=== PATIENT | female | born 1960 | race African-American/Black ===

== ENCOUNTER 2017-08-22 09:29 | Emergency (ER) | payer OTHER ==
[~2017-08-22] VITALS: Ht 165.1 cm; Wt 112.0 kg
[~2017-08-22 09:29] MED LIST: BENZ1TAB7 PO; COGENTIN PO; DIPH50CA37 PO; LORA-259 PO; QUET100T PO; SERT100T PO
--- NOTE | 2017-08-22 09:52 | NUR ---
PT IS IN ROOM #2B. DR MCPHERSON EVALUATED THE PT.
[2017-08-22] MEDS ORDERED: ACETAMINOPHEN 650 MG/20.3 ML LIQUID UDC PO ONE (11:45)
--- NOTE | 2017-08-22 11:50 | NUR ---
PT WAS D/C TO HOME. D/C INSTRUCTIONS GIVEN TO THE PT AND TO PT's STEPHENHTER.
[2017-08-22 11:51] VITALS: BP 139/85
[2017-08-22] MEDS ORDERED: ACETAMINOPHEN ES 500 MG TABLET ONE (12:12)
== END 2017-08-22 11:52 | disposition home or self-care (01) ==
LOC: ER 09:31
DX: S46.911A Strain of unspecified muscle, fascia and tendon at shoulder and upper arm level, right arm, initial encounter (principal); S40.011A Contusion of right shoulder, initial encounter; I10 Essential (primary) hypertension; Z79.899 Other long term (current) drug therapy; W18.30XA Fall on same level, unspecified, initial encounter; Y93.89 Activity, other specified; Y92.89 Other specified places as the place of occurrence of the external cause; Y99.8 Other external cause status
CPT/HCPCS: 71045; 73020; 73060; A4663; A9150

== ENCOUNTER 2017-11-06 00:54 | Emergency (ER) | payer OTHER ==
[~2017-11-06] VITALS: Ht 165.1 cm; Wt 108.9 kg
--- NOTE | 2017-11-06 01:00 | NUR ---
PATIENT BROUGHT IN BY RESCUE FOR C/O BILATERAL LOWER EXTREMITY SWELLIN FOR SEVERAL WEEKS. CAPILLARY REFILL ON BILATERAL LOWER EXTREMITY LESS THAN 3 SECONDS. DENIES SOB,N/V AND CP
[2017-11-06] MEDS ORDERED: AMLO10TA2 PO (01:12)
[2017-11-06] MEDS ORDERED: FURO-151 PO (01:12)
[2017-11-06] MEDS ORDERED: FERR325T30 PO (01:12)
[2017-11-06] MEDS ORDERED: ASPI81TA31 PO (01:12)
[2017-11-06] MEDS ORDERED: ATOR40TA PO (01:12)
[2017-11-06] MEDS ORDERED: LURA40TA PO (01:12)
[2017-11-06] MEDS ORDERED: LISI-603 PO (01:12)
[2017-11-06] MEDS ORDERED: IPRA4AER IH (01:12)
[2017-11-06] MEDS ORDERED: HYDR-4076 PO (01:12)
[2017-11-06] MEDS ORDERED: GABA-532 PO (01:12)
[2017-11-06] MEDS ORDERED: DIPH25CA83 PO (01:12)
[2017-11-06 01:40] LABS: BASOPHILS # (AUTO) 0.1 K/uL (0.0-8.0); EOSINOPHILS # (AUTO) 0.2 K/uL (0.0-0.7); EOSINOPHILS % (AUTO) 2.3 % (0.0-7.0); HEMATOCRIT 26.4 % (31.2-41.9); HEMOGLOBIN 8.6 g/dL (10.9-14.3); LYMPHOCYTES # (AUTO) 1.9 K/uL (20.0-40.0); LYMPHOCYTES % (AUTO) 20.4 % (20.5-51.5); MEAN CORPUSCULAR HGB CONC 33 g/dL (32.3-35.6); MEAN CORPUSCULAR VOLUME 85.7 fL (75.5-95.3); MONOCYTES # (AUTO) 0.6 K/uL (2.0-10.0); MONOCYTES % (AUTO) 6.9 % (0.0-11.0); NEUTROPHILS # (AUTO) 6.5 K/uL (1.8-8.9); NEUTROPHILS % (AUTO) 69.4 % (38.5-71.5); PLATELET COUNT (AUTO) 302 K/uL (179-408); RED BLOOD CELL COUNT(AUTO) 3.08 MIL/uL (3.63-4.92); WHITE BLOOD COUNT (AUTO) 9.3 K/uL (3.8-11.8)
[2017-11-06 01:55] LABS: BILIRUBIN,DIRECT 0.1 mg/dL (0.0-0.2); BILIRUBIN,TOTAL 0.2 mg/dL (0.2-1.0); CREATININE 3.7 mg/dL (0.6-1.3); POTASSIUM 4.9 mmol/L (3.5-5.1)
--- NOTE | 2017-11-06 02:53 | NUR ---
US TECH HERE TO DO US ON LOWER EXTREMITY
--- NOTE | 2017-11-06 03:34 | NUR ---
ELLA FROM [facility] CALLED BACK. STATES DR HENDERSON WILL CALL BACK AND SPEAK WITH DR LOPEZ
--- NOTE | 2017-11-06 03:46 | NUR ---
ELLA FROM [facility] CALLED BACK. REQUESTING FACESHEET TO BE FAX TO [phone] AND FACESHEET TO [facility] [phone]
--- NOTE | 2017-11-06 04:21 | NUR ---
Rubin mesaedward in EDM - 11/06/17 at 0426 by [id number] PATIENT REFUSED TO TRANSFERED TO [facility] OR BE ADMITTED TO TO HOSPITAL. ALSO SPOKE WITH PATIENT DAUGHTER DENISE DUGGAN AND BOTH STATES "WE WANT TO SIGH OUT AMA AND WE WILL GO TO OUR RENAL DOCTOR IN AM." DR LOPEZ MADE AWARE
--- NOTE | 2017-11-06 04:21 | NUR ---
PATIENT REFUSED TO BE TRANSFERED TO [facility] OR BE ADMITTED INPATIENT . SPOKE WITH PATIENT'S DAUGHTER DENISE DUGGAN AND BOTH STATED "WE WANT TO SIGN OUT AMA AND WE WILL GO TO OUR RENAL DOCTOR IN THE AM." DR LOPEZ MADE AWARE
--- NOTE | 2017-11-06 05:05 | NUR ---
Patient AND DAUGHTER (DENISE DUGGAN) does not wish to proceed with medical care recommended by ( [facility] ). Patient given information related to possible complications, up to and including , which could occur as a result of leaving the hospital at this time. Patient verbalizes understanding of risks involved due to leaving against medical advice. Patient has signed AMA form.
[2017-11-06 05:06] VITALS: BP 128/66
== END 2017-11-06 05:08 | disposition left against medical advice (07) ==
LOC: ER 00:58
DX: D64.9 Anemia, unspecified (principal); R60.9 Edema, unspecified; J45.909 Unspecified asthma, uncomplicated; I12.9 Hypertensive chronic kidney disease with stage 1 through stage 4 chronic kidney disease, or unspecified chronic kidney disease; N18.9 Chronic kidney disease, unspecified; Z79.82 Long term (current) use of aspirin; Z79.899 Other long term (current) drug therapy
CPT/HCPCS: 36415; 71045; 80048; 80076; 83880; 85025; 93970; 99285; A4663

== ENCOUNTER 2018-10-03 21:18 | Inpatient (IN) | payer MEDICARE, OTHER ==
[~2018-10-03] VITALS: Ht 165.1 cm; Wt 105.7 kg
[~2018-10-03 21:18] MED LIST changes: +AMLO10TA7 PO; +ASPI81TA31 PO; +ATOR40TA PO; -BENZ1TAB7 PO; -COGENTIN PO; +DIPH25CA83 PO; -DIPH50CA37 PO; +FERR325T30 PO; +FURO-151 PO; +GABA-532 PO; +HYDR-4076 PO; +IPRA4AER IH; +LISI-603 PO; -LORA-259 PO; +LURA40TA PO; -QUET100T PO; -SERT100T PO
--- NOTE | 2018-10-03 21:28 | NUR ---
Pt bib rescue ambulance from home after pt had a witnessed syncopal episode by family while sitting at dinner table. Denies fall/injury. Pt is awake, alert, oriented x 3. Speech clear. Able to move all extremities. Vital signs stable. Per EMS, pt blood sugar on field was 179. no acute distress noted.
[2018-10-03 21:53] LABS: *BILIRUBIN,URIN NEGATIVE (NEGATIVE); *BLOOD, URINE NEGATIVE (NEGATIVE); *CLARITY,URINE SLIGHTLY CLOUDY (CLEAR); *COLOR,URINE YELLOW (YELLOW); *KETONES,URINE NEGATIVE (NEGATIVE); *UROBILINOGEN,URINE 0.2 E.U./dl (NORMAL); LEUKOCYTE ESTERASE ,URINE NEGATIVE (NEGATIVE); NITRITE, URINE NEGATIVE (NEGATIVE); PH,URINE 5.5 (5.0-8.0); UGLUCOSE NEGATIVE (NEGATIVE)
[2018-10-03 21:56] LABS: BASOPHILS # (AUTO) 0.1 K/uL (0.0-8.0); BASOPHILS % (AUTO) 0.9 % (0.0-2.0); EOSINOPHILS # (AUTO) 0.3 K/uL (0.0-0.7); EOSINOPHILS % (AUTO) 2.6 % (0.0-7.0); HEMATOCRIT 31.3 % (31.2-41.9); HEMOGLOBIN 9.7 g/dL (10.9-14.3); LYMPHOCYTES # (AUTO) 1.9 K/uL (20.0-40.0); LYMPHOCYTES % (AUTO) 17.1 % (20.5-51.5); MEAN CORPUSCULAR HEMOGLOBIN 25.2 uug (24.7-32.8); MEAN CORPUSCULAR HGB CONC 31 g/dL (32.3-35.6); MEAN CORPUSCULAR VOLUME 81.1 fL (75.5-95.3); MONOCYTES # (AUTO) 0.7 K/uL (2.0-10.0); MONOCYTES % (AUTO) 5.9 % (0.0-11.0); NEUTROPHILS # (AUTO) 8.3 K/uL (1.8-8.9); NEUTROPHILS % (AUTO) 73.5 % (38.5-71.5); PLATELET COUNT (AUTO) 378 K/uL (179-408); RED BLOOD CELL COUNT(AUTO) 3.86 MIL/uL (3.63-4.92); WHITE BLOOD COUNT (AUTO) 11.3 K/uL (3.8-11.8)
[2018-10-03 21:58] LABS: CREATININE 3.5 mg/dL (0.6-1.3); POTASSIUM 4.2 mmol/L (3.5-5.1)
[2018-10-03 22:03] LABS: BACTERIA,URINE FEW /HPF (NONE SEEN); MUCUS,URINE FEW /LPF (0-FEW); SQUAMOUS EPITHELIAL CELL,UR MANY /HPF (NONE SEEN); WBC,URINE 0-3 /HPF (0-3)
[2018-10-03] MEDS ORDERED: GABA-534 PO (22:09)
[2018-10-03 22:16] LABS: BILIRUBIN,DIRECT 0.1 mg/dL (0.0-0.2); BILIRUBIN,TOTAL 0.2 mg/dL (0.2-1.0); TOTAL PROTEIN, SERUM 7.4 g/dL (6.4-8.2)
--- NOTE | 2018-10-03 22:47 | NUR ---
Called [facility] to page Dr. Jose Armando Juarez.
--- NOTE | 2018-10-03 22:55 | NUR ---
Rubin moss in [facility] - 10/03/18 [address] Granados speaking to Dr. Jose Armando Juarez on telephone.
[2018-10-03] MEDS ORDERED: IV NS 1000 ML 1,000 ML IV PRN (23:21)
[2018-10-03] MEDS ORDERED: HYDROCODONE/APAP 10-325 MG TABLET PO PRN (23:30)
[2018-10-03] MEDS ORDERED: ONDANSETRON 4 MG/2 ML VIAL IV PRN (23:30)
[2018-10-03] MEDS ORDERED: HYDROCODONE/APAP 5-325MG TABLET PO PRN (23:30)
[2018-10-03] MEDS ORDERED: ACETAMINOPHEN 325 MG TABLET PO PRN (23:30)
[2018-10-03] MEDS ORDERED: MAGNESIUM HYDROXIDE 30 ML LIQUID UDC PO PRN (23:30)
[2018-10-03] MEDS ORDERED: DEXTROSE 50% 50 ML DISP.SYRIN IV PRN (23:30)
[2018-10-03] MEDS ORDERED: TEMAZEPAM 15 MG CAPSULE PO PRN (23:30)
[2018-10-03] MEDS ORDERED: INSULIN REGULAR, HUMAN 300 UNIT/3 ML VIAL SQ PRN (23:30)
--- NOTE | 2018-10-03 23:38 | NUR ---
Pt. admitted to Telemetry, under care of Boby Poe. Diagnosis: Syncope. Belongs List completed
[2018-10-04] MEDS ORDERED: LORAZEPAM 2 MG/1 ML VIAL IV PRN
--- NOTE | 2018-10-04 00:14 | NUR ---
received report from Radha in the ER. Room is ready for the admission.
[2018-10-04] MEDS ORDERED: HYDROCODONE/APAP 5-325MG TABLET PO ONE (00:15)
[2018-10-04] MEDS ORDERED: IPRATROPIUM BROMIDE 0.5 MG/2.5 ML NEBU NEB PRN (00:15)
[2018-10-04] MEDS ORDERED: ALBUTEROL SULFATE 2.5 MG/3 ML NEBU NEB PRN (00:15)
[2018-10-04 00:30] VITALS: BP 127/66
--- NOTE | 2018-10-04 00:40 | NUR ---
PATIENT IS ON THE UNIT. ADMISSION PROCESS IN PROGRESS
[2018-10-04 04:00] VITALS: BP 122/67
--- NOTE | 2018-10-04 05:17 | NUR ---
PATIENT WAS ASSESSED AND HISTORY WAS OBTAINED. PATIENT IS ON MONITOR, SINUS RHYTHM. GIVEN SNACKS AND HOT TEA. RESTORIL GIVEN ON REQUEST. PATIENT IS ASLEEP. COMFORT AND SAFETY PROVIDED. NO ACUTE DISTRESS NOTED
[2018-10-04 06:52] LABS: BASOPHILS # (AUTO) 0.1 K/uL (0.0-8.0); BASOPHILS % (AUTO) 0.5 % (0.0-2.0); EOSINOPHILS # (AUTO) 0.2 K/uL (0.0-0.7); EOSINOPHILS % (AUTO) 1.6 % (0.0-7.0); HEMATOCRIT 26.9 % (31.2-41.9); HEMOGLOBIN 8.3 g/dL (10.9-14.3); LYMPHOCYTES % (AUTO) 18.3 % (20.5-51.5); MEAN CORPUSCULAR HEMOGLOBIN 25.2 uug (24.7-32.8); MEAN CORPUSCULAR HGB CONC 31 g/dL (32.3-35.6); MEAN CORPUSCULAR VOLUME 81.8 fL (75.5-95.3); MONOCYTES # (AUTO) 0.6 K/uL (2.0-10.0); MONOCYTES % (AUTO) 5.4 % (0.0-11.0); NEUTROPHILS # (AUTO) 8.3 K/uL (1.8-8.9); NEUTROPHILS % (AUTO) 74.2 % (38.5-71.5); PLATELET COUNT (AUTO) 321 K/uL (179-408); RED BLOOD CELL COUNT(AUTO) 3.28 MIL/uL (3.63-4.92); WHITE BLOOD COUNT (AUTO) 11.1 K/uL (3.8-11.8)
[2018-10-04] MEDS ORDERED: PANTOPRAZOLE SODIUM 40 MG TABLET.DR PO SCH (07:00)
[2018-10-04] MEDS ORDERED: BLOOD SUGAR DIAGNOSTIC 1 EACH STRIP VI SCH (07:30)
--- NOTE | 2018-10-04 07:45 | NUR ---
patient slept well after Restoril. No acute distress noted. Endorsed report to the day shift.
[2018-10-04] MEDS ORDERED: hydrALAZINE HCL 25 MG TABLET PO SCH (07:53)
[2018-10-04 08:56] VITALS: BP 122/67
[2018-10-04] MEDS ORDERED: FERROUS SULFATE 325 MG TABEC PO SCH (09:00)
[2018-10-04] MEDS ORDERED: GABAPENTIN 100 MG CAPSULE PO SCH (09:00)
[2018-10-04] MEDS ORDERED: AMLODIPINE 10 MG TABLET PO SCH (09:00)
[2018-10-04] MEDS ORDERED: ASPIRIN 81 MG TAB.CHEW PO SCH (09:00)
--- NOTE | 2018-10-04 10:42 | NUR ---
Patient left against medical advice. Discussion with patient daughter about age related CT exam and for this hospitalization provider discussion regarding dehydration. Daughter notes patient is taking liquids but many times it is soda. Patient verbalized understanding of exit care. Copy of instruction for home. Yang Lombardi RN
[2018-10-04] MEDS ORDERED: ATORVASTATIN 40 MG TABLET PO SCH (21:00)
== END 2018-10-04 10:15 | disposition left against medical advice (07) | DRG 73 ==
LOC: ER 21:19 → TELE3 10-04 00:13
PROVIDERS: ADMIT Nurse Practitioner Acute Care; ATTEND Nurse Practitioner Acute Care
DX: G90.8 Other disorders of autonomic nervous system (principal); N17.0 Acute kidney failure with tubular necrosis; N17.9 Acute kidney failure, unspecified; E44.0 Moderate protein-calorie malnutrition; F20.0 Paranoid schizophrenia; E66.01 Morbid (severe) obesity due to excess calories; M25.511 Pain in right shoulder; F17.208 Nicotine dependence, unspecified, with other nicotine-induced disorders; J68.4 Chronic respiratory conditions due to chemicals, gases, fumes and vapors; E11.65 Type 2 diabetes mellitus with hyperglycemia; E11.42 Type 2 diabetes mellitus with diabetic polyneuropathy; I12.9 Hypertensive chronic kidney disease with stage 1 through stage 4 chronic kidney disease, or unspecified chronic kidney disease; E11.22 Type 2 diabetes mellitus with diabetic chronic kidney disease; N18.9 Chronic kidney disease, unspecified; Z79.82 Long term (current) use of aspirin; E78.5 Hyperlipidemia, unspecified; Z90.49 Acquired absence of other specified parts of digestive tract; Z97.0 Presence of artificial eye; J43.9 Emphysema, unspecified; Z68.39 Body mass index [BMI] 39.0-39.9, adult; R26.81 Unsteadiness on feet
CPT/HCPCS: 36415; 70030-TC; 70450; 71045; 83605; 83735; 84100; 85025; 87040; 87086; 93005; 93307; A4663; G0378; J1815

== ENCOUNTER 2018-11-15 21:23 | Inpatient (IN) | payer MEDICARE, OTHER ==
[~2018-11-15] VITALS: Ht 165.1 cm; Wt 107.0 kg
[~2018-11-15 21:23] MED LIST changes: +GABA-534 PO
[2018-11-15] MEDS ORDERED: BLOO-360 IN (21:56)
[2018-11-15] MEDS ORDERED: ALBU18HF2 IH (21:56)
[2018-11-15] MEDS ORDERED: INSU100I26 SQ (21:56)
[2018-11-15 22:35] LABS: BASOPHILS # (AUTO) 0.1 K/uL (0.0-8.0); BASOPHILS % (AUTO) 0.8 % (0.0-2.0); CARBON DIOXIDE 25 mmol/L (21-32); CHLORIDE 102 mmol/L (98-107); CREATININE 3.2 mg/dL (0.6-1.3); EOSINOPHILS # (AUTO) 0.2 K/uL (0.0-0.7); EOSINOPHILS % (AUTO) 1.8 % (0.0-7.0); GLUCOSE 224 mg/dL (74-106); HEMATOCRIT 30.8 % (31.2-41.9); HEMOGLOBIN 9.6 g/dL (10.9-14.3); LYMPHOCYTES # (AUTO) 2.1 K/uL (20.0-40.0); LYMPHOCYTES % (AUTO) 16.4 % (20.5-51.5); MEAN CORPUSCULAR HEMOGLOBIN 25.5 uug (24.7-32.8); MEAN CORPUSCULAR HGB CONC 31 g/dL (32.3-35.6); MEAN CORPUSCULAR VOLUME 81.5 fL (75.5-95.3); MONOCYTES # (AUTO) 0.6 K/uL (2.0-10.0); MONOCYTES % (AUTO) 4.8 % (0.0-11.0); NEUTROPHILS # (AUTO) 9.9 K/uL (1.8-8.9); NEUTROPHILS % (AUTO) 76.2 % (38.5-71.5); PLATELET COUNT (AUTO) 427 K/uL (179-408); POTASSIUM 4.3 mmol/L (3.5-5.1); RED BLOOD CELL COUNT(AUTO) 3.79 MIL/uL (3.63-4.92); UREA NITROGEN, BLOOD 73 mg/dL (7-18)
[2018-11-15 22:39] LABS: ALANINE AMINOTRANSFERASE 16 U/L (14-59); ALKALINE PHOSPHATASE 161 U/L (50-136); ASPARTATE AMINOTRANSFERASE 11 U/L (15-37); BILIRUBIN,DIRECT 0.1 mg/dL (0.0-0.2); BILIRUBIN,TOTAL 0.2 mg/dL (0.2-1.0); TOTAL PROTEIN, SERUM 7.7 g/dL (6.4-8.2)
[2018-11-15 22:41] LABS: ACETAMINOPHEN < 2.0 ug/mL (10-30)
[2018-11-15 22:46] LABS: ETHANOL 4 MG/DL (0-0)
[2018-11-15 22:53] LABS: THYROID STIMULATING HORMONE 2.798 mIU/mL (0.358-3.740)
[2018-11-15 23:21] LABS: *BILIRUBIN,URIN NEGATIVE (NEGATIVE); *BLOOD, URINE NEGATIVE (NEGATIVE); *CLARITY,URINE CLEAR (CLEAR); *COLOR,URINE YELLOW (YELLOW); *KETONES,URINE NEGATIVE (NEGATIVE); *UROBILINOGEN,URINE 0.2 E.U./dl (NORMAL); LEUKOCYTE ESTERASE ,URINE NEGATIVE (NEGATIVE); NITRITE, URINE NEGATIVE (NEGATIVE); UGLUCOSE NEGATIVE (NEGATIVE)
[2018-11-15 23:36] LABS: *AMPHETAMINE, URINE NEGATIVE (NEGATIVE); *BARBITURATE, URINE NEGATIVE (NEGATIVE); *CANNABINOID, URINE NEGATIVE (NEGATIVE); *COCCAINE, URINE NEGATIVE (NEGATIVE); *OPIATE, URINE NEGATIVE (NEGATIVE); *PHENCYCLIDINE SCREEN,URINE NEGATIVE (NEGATIVE)
[2018-11-15] MEDS ORDERED: MORPHINE SULFATE 2 MG/1 ML DISP.SYRIN IV PRN (23:45)
[2018-11-15] MEDS ORDERED: MAGNESIUM HYDROXIDE 30 ML LIQUID UDC PO PRN (23:45)
[2018-11-15] MEDS ORDERED: ALBUTEROL SULFATE 2.5 MG/ 0.5 ML NEBU NEB PRN (23:45)
[2018-11-15] MEDS ORDERED: ONDANSETRON 4 MG/2 ML VIAL IV PRN (23:45)
[2018-11-15] MEDS ORDERED: IPRATROPIUM BROMIDE 0.5 MG/2.5 ML NEBU NEB PRN (23:45)
[2018-11-15] MEDS ORDERED: HYDROCODONE/APAP 5-325MG TABLET PO PRN (23:45)
[2018-11-15] MEDS ORDERED: Z GUARD REMEDY PASTE 57 GM TUBE TOP PRN (23:45)
[2018-11-15] MEDS ORDERED: ACETAMINOPHEN 325 MG TABLET PO PRN (23:45)
[2018-11-15] MEDS ORDERED: DEXTROSE 50% 50 ML DISP.SYRIN IV PRN (23:45)
[2018-11-15] MEDS ORDERED: INSULIN REGULAR, HUMAN 300 UNITS/3 ML VIAL SQ PRN (23:45)
[2018-11-16] MEDS ORDERED: LORAZEPAM 2 MG/1 ML VIAL IV PRN
[2018-11-16 00:53] VITALS: BP 151/69
[2018-11-16 05:14] VITALS: BP 127/73
[2018-11-16] MEDS: BLOOD SUGAR DIAGNOSTIC 1 EACH STRIP VI SCH ×4 (07:01→21:34)
[2018-11-16 07:21] LABS: BILIRUBIN,TOTAL 0.1 mg/dL (0.2-1.0); CREATININE 2.7 mg/dL (0.6-1.3); MAGNESIUM 2.1 mg/dL (1.8-2.4); PHOSPHOROUS 3.7 mg/dL (2.5-4.9); POTASSIUM 4.1 mmol/L (3.5-5.1); TOTAL PROTEIN, SERUM 6.5 g/dL (6.4-8.2)
[2018-11-16 07:31] LABS: BASOPHILS % (AUTO) 0.3 % (0.0-2.0); EOSINOPHILS # (AUTO) 0.2 K/uL (0.0-0.7); EOSINOPHILS % (AUTO) 1.5 % (0.0-7.0); LYMPHOCYTES # (AUTO) 2.1 K/uL (20.0-40.0); LYMPHOCYTES % (AUTO) 18.7 % (20.5-51.5); MEAN CORPUSCULAR HEMOGLOBIN 26.3 uug (24.7-32.8); MEAN CORPUSCULAR HGB CONC 32 g/dL (32.3-35.6); MEAN CORPUSCULAR VOLUME 81.6 fL (75.5-95.3); MONOCYTES # (AUTO) 0.7 K/uL (2.0-10.0); MONOCYTES % (AUTO) 5.9 % (0.0-11.0); NEUTROPHILS # (AUTO) 8.3 K/uL (1.8-8.9); NEUTROPHILS % (AUTO) 73.6 % (38.5-71.5); PLATELET COUNT (AUTO) 351 K/uL (179-408); RED BLOOD CELL COUNT(AUTO) 3.26 MIL/uL (3.63-4.92); WHITE BLOOD COUNT (AUTO) 11.3 K/uL (3.8-11.8)
[2018-11-16 07:35] LABS: HEMOGLOBIN 8.6 g/dL (10.9-14.3)
[2018-11-16 07:36] LABS: HEMATOCRIT 26.6 % (31.2-41.9); THYROID STIMULATING HORMONE 2.969 mIU/mL (0.358-3.740)
[2018-11-16] MEDS ORDERED: LISINOPRIL 20 MG TABLET PO SCH (09:00)
[2018-11-16] MEDS: INSULIN REGULAR, HUMAN 300 UNIT/3 ML VIAL SQ PRN ×3 (09:04→17:33)
[2018-11-16] MEDS: AMLODIPINE 10 MG TABLET PO SCH (09:10)
[2018-11-16] MEDS: FUROSEMIDE 40 MG TABLET PO SCH ×2 (09:11→17:31)
[2018-11-16] MEDS: hydrALAZINE HCL 25 MG TABLET PO SCH ×3 (09:11→21:26)
[2018-11-16] MEDS: GABAPENTIN 100 MG CAPSULE PO SCH ×3 (09:15→17:31)
[2018-11-16] MEDS: ASPIRIN 81 MG TAB.CHEW PO SCH (09:15)
[2018-11-16] MEDS: NICOTINE 14 MG/24HR PATCH TD SCH (10:38)
[2018-11-16 11:40] VITALS: BP 127/91
[2018-11-16] MEDS: LEVETIRACETAM 500 MG TABLET PO SCH ×2 (12:31→21:18)
[2018-11-16] MEDS: FERROUS SULFATE 325 MG TABEC PO SCH ×2 (12:31→21:18)
[2018-11-16] MEDS: INSULIN GLARGINE,HUM 300 UNITS/3 ML CARTRIDGE SQ SCH (12:33)
[2018-11-16 14:34] LABS: *BILIRUBIN,URIN NEGATIVE (NEGATIVE); *BLOOD, URINE NEGATIVE (NEGATIVE); *CLARITY,URINE CLEAR (CLEAR); *COLOR,URINE LIGHT YELLOW (YELLOW); *KETONES,URINE NEGATIVE (NEGATIVE); *UROBILINOGEN,URINE 0.2 E.U./dl (NORMAL); LEUKOCYTE ESTERASE ,URINE NEGATIVE (NEGATIVE); NITRITE, URINE NEGATIVE (NEGATIVE); PH,URINE 5.5 (5.0-8.0); UGLUCOSE NEGATIVE (NEGATIVE)
[2018-11-16 15:58] LABS: *CREATININE,URINE 31.3 mg/dL (30-125); *URINE TOTAL PROTEIN RANDOM 6.9 mg/dL (<150/24HR)
[2018-11-16 16:00] VITALS: BP 121/69
[2018-11-16] MEDS: IV NS 1000 ML 1,000 ML IV PRN (17:43)
[2018-11-16] MEDS ORDERED: GABA-534 PO (17:54)
[2018-11-16] MEDS ORDERED: TUJEO SQ (17:56)
[2018-11-16] MEDS ORDERED: EPOE1VIA6 IJ (17:57)
[2018-11-16] MEDS ORDERED: diphenhydrAMINE 25 MG CAP PO SCH (21:00)
[2018-11-16] MEDS ORDERED: ATORVASTATIN 40 MG TABLET PO SCH (21:00)
[2018-11-16] MEDS ORDERED: [UNRECOGNIZED DRUG - REMARK] PO SCH (21:00)
[2018-11-16] MEDS: LISINOPRIL 20 MG TABLET PO SCH (21:25)
[2018-11-17] MEDS: hydrALAZINE HCL 25 MG TABLET PO SCH ×2 (06:37→13:05)
[2018-11-17 06:39] LABS: BASOPHILS % (AUTO) 0.4 % (0.0-2.0); EOSINOPHILS # (AUTO) 0.2 K/uL (0.0-0.7); EOSINOPHILS % (AUTO) 2.2 % (0.0-7.0); HEMATOCRIT 27.8 % (31.2-41.9); HEMOGLOBIN 8.8 g/dL (10.9-14.3); LYMPHOCYTES # (AUTO) 1.8 K/uL (20.0-40.0); LYMPHOCYTES % (AUTO) 19.6 % (20.5-51.5); MEAN CORPUSCULAR HEMOGLOBIN 25.6 uug (24.7-32.8); MEAN CORPUSCULAR HGB CONC 32 g/dL (32.3-35.6); MEAN CORPUSCULAR VOLUME 81.2 fL (75.5-95.3); MONOCYTES # (AUTO) 0.7 K/uL (2.0-10.0); MONOCYTES % (AUTO) 7.2 % (0.0-11.0); NEUTROPHILS # (AUTO) 6.6 K/uL (1.8-8.9); NEUTROPHILS % (AUTO) 70.6 % (38.5-71.5); PLATELET COUNT (AUTO) 375 K/uL (179-408); RED BLOOD CELL COUNT(AUTO) 3.43 MIL/uL (3.63-4.92); WHITE BLOOD COUNT (AUTO) 9.4 K/uL (3.8-11.8)
[2018-11-17 06:46] LABS: BILIRUBIN,TOTAL 0.2 mg/dL (0.2-1.0); CREATININE 2.1 mg/dL (0.6-1.3); PHOSPHOROUS 3.1 mg/dL (2.5-4.9); POTASSIUM 3.9 mmol/L (3.5-5.1); TOTAL PROTEIN, SERUM 6.8 g/dL (6.4-8.2)
[2018-11-17] MEDS: BLOOD SUGAR DIAGNOSTIC 1 EACH STRIP VI SCH ×3 (06:49→16:31)
[2018-11-17] MEDS: IV NS 1000 ML 1,000 ML IV PRN (06:59)
[2018-11-17] MEDS: INSULIN REGULAR, HUMAN 300 UNIT/3 ML VIAL SQ PRN ×3 (08:19→16:34)
[2018-11-17] MEDS: NICOTINE 14 MG/24HR PATCH TD SCH (08:32)
[2018-11-17] MEDS: LEVETIRACETAM 500 MG TABLET PO SCH (08:33)
[2018-11-17] MEDS: GABAPENTIN 100 MG CAPSULE PO SCH ×3 (08:33→16:34)
[2018-11-17] MEDS: FUROSEMIDE 40 MG TABLET PO SCH ×2 (08:33→16:34)
[2018-11-17] MEDS: FERROUS SULFATE 325 MG TABEC PO SCH (08:33)
[2018-11-17] MEDS: ASPIRIN 81 MG TAB.CHEW PO SCH (08:33)
[2018-11-17] MEDS: LISINOPRIL 20 MG TABLET PO SCH (08:34)
[2018-11-17] MEDS: AMLODIPINE 10 MG TABLET PO SCH (08:34)
[2018-11-17] MEDS: INSULIN GLARGINE,HUM 300 UNITS/3 ML CARTRIDGE SQ SCH (08:50)
[2018-11-17 11:45] VITALS: BP 145/81
[2018-11-17 15:48] VITALS: BP 143/83
[2018-11-17] MEDS ORDERED: GABA-534 PO (15:48)
[2018-11-17] MEDS ORDERED: LEVE500T9 PO (15:48)
[2018-11-18 14:05] LABS: ALPHA-1-GLOBULIN 0.2 g/dL (0.0-0.4); ALPHA-2-GLOBULIN 0.9 g/dL (0.4-1.0); BETA GLOBULIN 0.8 g/dL (0.7-1.3); GAMMA GLOBULIN 1.2 g/dL (0.4-1.8); M-SPIKE Not Observed g/dL (Not Observed)
== END 2018-11-17 18:25 | disposition home or self-care (01) | DRG 100 ==
LOC: ER 21:23 → TELE3 23:57
PROVIDERS: ADMIT Nurse Practitioner Acute Care; ATTEND Nurse Practitioner Acute Care
DX: G40.409 Other generalized epilepsy and epileptic syndromes, not intractable, without status epilepticus (principal); N17.0 Acute kidney failure with tubular necrosis; D68.59 Other primary thrombophilia; E44.0 Moderate protein-calorie malnutrition; N18.4 Chronic kidney disease, stage 4 (severe); Z68.41 Body mass index [BMI] 40.0-44.9, adult; G93.40 Encephalopathy, unspecified; E11.22 Type 2 diabetes mellitus with diabetic chronic kidney disease; I12.9 Hypertensive chronic kidney disease with stage 1 through stage 4 chronic kidney disease, or unspecified chronic kidney disease; Z79.4 Long term (current) use of insulin; E11.42 Type 2 diabetes mellitus with diabetic polyneuropathy; E11.65 Type 2 diabetes mellitus with hyperglycemia; E66.01 Morbid (severe) obesity due to excess calories; Z74.09 Other reduced mobility; Z97.0 Presence of artificial eye; Z86.73 Personal history of transient ischemic attack (TIA), and cerebral infarction without residual deficits; J44.9 Chronic obstructive pulmonary disease, unspecified; E78.5 Hyperlipidemia, unspecified; F20.9 Schizophrenia, unspecified; F17.210 Nicotine dependence, cigarettes, uncomplicated; D63.8 Anemia in other chronic diseases classified elsewhere; Z79.899 Other long term (current) drug therapy; D72.829 Elevated white blood cell count, unspecified; G24.01 Drug induced subacute dyskinesia; Z90.49 Acquired absence of other specified parts of digestive tract; R51 Headache; R40.2362 Coma scale, best motor response, obeys commands, at arrival to emergency department; R40.2142 Coma scale, eyes open, spontaneous, at arrival to emergency department; R40.2252 Coma scale, best verbal response, oriented, at arrival to emergency department
CPT/HCPCS: 36415; 70030-TC; 70450; 71045; 76770; 80307; 83605; 83735; 83970; 84100; 84155; 84156; 84165; 84300; 84443; 85025; 85730; 87040; 87086; 93005; 97110; 97116; 97530; A4663; G0378; G0480; G0480-TC; J1815; J7030; Q0163

== ENCOUNTER 2019-06-01 12:36 | Inpatient (IN) | payer MEDICARE, OTHER ==
[~2019-06-01] VITALS: Ht 165.1 cm; Wt 93.0 kg
[~2019-06-01 12:36] MED LIST changes: +BLOO-360 IN; +EPOE1VIA6 IJ; -GABA-532 PO; -HYDR-4076 PO; +HYDR-894 PO; -IPRA4AER IH; +LEVE500T9 PO; +TUJEO SQ
[2019-06-01] MEDS ORDERED: ALBU0.63 NEB (13:39)
[2019-06-01] MEDS ORDERED: HYDR-894 PO (13:39)
[2019-06-01] MEDS ORDERED: IPRA4AER IH (13:39)
[2019-06-01] MEDS ORDERED: INSU100I26 SQ (13:39)
[2019-06-01] MEDS ORDERED: GABA-532 PO (13:39)
[2019-06-01 13:42] LABS: BASOPHILS # (AUTO) 0.1 K/uL (0.0-8.0); BASOPHILS % (AUTO) 1.1 % (0.0-2.0); EOSINOPHILS # (AUTO) 0.1 K/uL (0.0-0.7); EOSINOPHILS % (AUTO) 0.8 % (0.0-7.0); HEMATOCRIT 31.5 % (31.2-41.9); HEMOGLOBIN 9.9 g/dL (10.9-14.3); LYMPHOCYTES # (AUTO) 1.7 K/uL (20.0-40.0); LYMPHOCYTES % (AUTO) 20.2 % (20.5-51.5); MEAN CORPUSCULAR HEMOGLOBIN 27.5 uug (24.7-32.8); MEAN CORPUSCULAR HGB CONC 31 g/dL (32.3-35.6); MEAN CORPUSCULAR VOLUME 87.9 fL (75.5-95.3); MONOCYTES # (AUTO) 0.6 K/uL (2.0-10.0); MONOCYTES % (AUTO) 7.2 % (0.0-11.0); NEUTROPHILS % (AUTO) 70.7 % (38.5-71.5); PLATELET COUNT (AUTO) 238 K/uL (179-408); RED BLOOD CELL COUNT(AUTO) 3.58 MIL/uL (3.63-4.92); WHITE BLOOD COUNT (AUTO) 8.5 K/uL (3.8-11.8)
[2019-06-01 13:51] LABS: CREATININE 3.2 mg/dL (0.6-1.3)
--- NOTE | 2019-06-01 13:57 | NUR ---
PT IS IN ROOM #1B. DR GUPTA EVALUATED THE PT.
[2019-06-01] MEDS ORDERED: INSU100C SQ (13:59)
[2019-06-01 14:05] LABS: BILIRUBIN,DIRECT 0.1 mg/dL (0.0-0.2); BILIRUBIN,TOTAL 0.2 mg/dL (0.2-1.0); TOTAL PROTEIN, SERUM 5.2 g/dL (6.4-8.2)
[2019-06-01] MEDS ORDERED: IV NORMAL SALINE 1000 ML BAG IV ONE (14:30)
[2019-06-01] MEDS ORDERED: AZITHROMYCIN IV 500 MG in IV DEXTROSE 5% 250 ML IV ONE (14:30)
[2019-06-01] MEDS ORDERED: AZITHROMYCIN 500MG/ D5W 250ML IVPB **ER PYXIS ONLY IV ONE (14:36)
[2019-06-01 16:20] VITALS: BP 116/62
--- NOTE | 2019-06-01 16:35 | NUR ---
REPORT WAS GIVEN TO RN M/S. PT WAS TRANSFERED TO ROOM #307.
[2019-06-01] MEDS ORDERED: ONDANSETRON 4 MG/2 ML VIAL IV PRN (17:30)
[2019-06-01] MEDS ORDERED: DEXTROSE 50% 50 ML DISP.SYRIN IV PRN (17:30)
[2019-06-01] MEDS ORDERED: ALBUTEROL SULFATE 1.25 MG/3 ML NEBU NEB PRN (17:30)
[2019-06-01] MEDS: POTASSIUM CHLORIDE 20 MEQ in IV D5 1/2 NS 1000 ML 1,000 ML IV PRN (19:16)
--- NOTE | 2019-06-01 20:00 | NUR ---
Received patient in bed awake, A&Ox4. No SOB noted. Patient noted w/ episode of coughing. IV on R wrist intact and patent w/ IVF infusing. SR on Tele monitor at 95bpm. Patient seen and examined by Dr. Juarez w/ n.o placed. Safety measures observed. Call light in reach
[2019-06-01 20:06] VITALS: BP 118/71
[2019-06-01] MEDS ORDERED: IPRATROPIUM BROMIDE 0.5 MG/2.5 ML NEBU NEB PRN (20:45)
[2019-06-01] MEDS: LEVETIRACETAM 500 MG TABLET PO SCH (20:49)
[2019-06-01] MEDS: ACETAMINOPHEN 325 MG TABLET PO PRN (20:49)
[2019-06-01] MEDS: GUAIFENESIN/CODEINE 5 ML LIQUID UDC PO PRN (20:50)
[2019-06-01] MEDS: BLOOD SUGAR DIAGNOSTIC 1 EACH STRIP VI SCH (20:57)
[2019-06-01] MEDS: INSULIN REGULAR, HUMAN 300 UNIT/3 ML VIAL SQ PRN (21:00)
[2019-06-01] MEDS: methylPREDNISolone SOD SUCC 40 MG/ML VIAL IV SCH (21:04)
[2019-06-02] VITALS: BP 128/77
[2019-06-02] MEDS: GUAIFENESIN/CODEINE 5 ML LIQUID UDC PO PRN ×2 (02:49→17:14)
[2019-06-02] MEDS: ACETAMINOPHEN 325 MG TABLET PO PRN ×2 (02:49→22:50)
[2019-06-02 04:52] VITALS: BP 122/67
[2019-06-02 06:18] LABS: BASOPHILS % (AUTO) 0.1 % (0.0-2.0); HEMATOCRIT 31.7 % (31.2-41.9); HEMOGLOBIN 9.8 g/dL (10.9-14.3); LYMPHOCYTES # (AUTO) 0.5 K/uL (20.0-40.0); LYMPHOCYTES % (AUTO) 10.6 % (20.5-51.5); MEAN CORPUSCULAR HEMOGLOBIN 27.2 uug (24.7-32.8); MEAN CORPUSCULAR HGB CONC 31 g/dL (32.3-35.6); MEAN CORPUSCULAR VOLUME 87.8 fL (75.5-95.3); MONOCYTES # (AUTO) 0.1 K/uL (2.0-10.0); MONOCYTES % (AUTO) 1.5 % (0.0-11.0); NEUTROPHILS % (AUTO) 87.8 % (38.5-71.5); PLATELET COUNT (AUTO) 238 K/uL (179-408); WHITE BLOOD COUNT (AUTO) 4.5 K/uL (3.8-11.8)
--- NOTE | 2019-06-02 06:24 | NUR ---
Patient slept intermittently. PRN cough syrup given as ordered. No complaints of pain at this time. SR on Tele monitor at 92 bpm. All needs attended. Will endorse accordingly
[2019-06-02] MEDS: BLOOD SUGAR DIAGNOSTIC 1 EACH STRIP VI SCH ×4 (06:44→21:08)
[2019-06-02 06:48] LABS: BILIRUBIN,TOTAL 0.3 mg/dL (0.2-1.0); CREATININE 3.4 mg/dL (0.6-1.3); MAGNESIUM 1.7 mg/dL (1.8-2.4); PHOSPHOROUS 3.8 mg/dL (2.5-4.9); POTASSIUM 4.8 mmol/L (3.5-5.1); TOTAL PROTEIN, SERUM 7.5 g/dL (6.4-8.2)
[2019-06-02 06:58] LABS: THYROID STIMULATING HORMONE 1.224 mIU/mL (0.358-3.740)
[2019-06-02] MEDS: INSULIN REGULAR, HUMAN 300 UNIT/3 ML VIAL SQ PRN ×4 (06:59→21:15)
--- NOTE | 2019-06-02 08:00 | NUR ---
AWAKE ALERT AND ORIENTED X3 NO SS OF DISTRESS EXCEPT THAT PT COUGHING PRODUCTIVELY. PATIENT ON IV ANTIBIOTIC NO ADVERSE REACTION NOTED. SR ON MONITOR
[2019-06-02] MEDS: GABAPENTIN 100 MG CAPSULE PO SCH (08:23)
[2019-06-02] MEDS: AMLODIPINE 10 MG TABLET PO SCH (08:23)
[2019-06-02] MEDS: ASPIRIN 81 MG TAB.CHEW PO SCH (08:23)
[2019-06-02] MEDS: LEVETIRACETAM 500 MG TABLET PO SCH ×2 (08:24→21:04)
[2019-06-02] MEDS: NICOTINE 21 MG/24HR PATCH TD SCH (08:24)
[2019-06-02] MEDS: FLUTICASONE/VILANTEROL 1 EACH BLST.W.DEV INH SCH (08:24)
[2019-06-02] MEDS: methylPREDNISolone SOD SUCC 40 MG/ML VIAL IV SCH ×2 (08:24→21:04)
[2019-06-02] MEDS: POTASSIUM CHLORIDE 20 MEQ in IV D5 1/2 NS 1000 ML 1,000 ML IV PRN (08:26)
[2019-06-02] MEDS ORDERED: MAGNESIUM SULFATE/D5W 100 ML IV SCH (09:30)
--- NOTE | 2019-06-02 10:30 | NUR ---
DR GASCA IN NOTED LABS WITH ORDER TO RE[PLACE MG. AWARE OF HIGH BLOOD SUGAR. IV DEXTROSE DCD. CONTINUE WITH BLOOD SUGAR MONITORING WITH AGGRESSIVE SS
[2019-06-02 11:19] VITALS: BP 126/74
[2019-06-02] MEDS: AZITHROMYCIN IV 250 MG in IV DEXTROSE 5% 250 ML IV SCH (13:50)
--- NOTE | 2019-06-02 15:20 | NUR ---
ON AND OFF PRODUCTIVE COUGH STILL NOTED CONTINUE WITH IV ZITHROMAX SR/ST ON MONITOR
[2019-06-02 15:50] VITALS: BP 124/69
--- NOTE | 2019-06-02 16:33 | NUR ---
BS 435, PATIENT REMAINS ASYMPTOMATIC. DR GASCA IN NO ADDITIONAL COVERAGE BUT TO START ON LANTUS 10 UNITS Q HS
[2019-06-02 17:28] LABS: *BILIRUBIN,URIN NEGATIVE (NEGATIVE); *BLOOD, URINE NEGATIVE (NEGATIVE); *COLOR,URINE YELLOW (YELLOW); *KETONES,URINE NEGATIVE (NEGATIVE); *UROBILINOGEN,URINE 0.2 E.U./dl (NORMAL); LEUKOCYTE ESTERASE ,URINE NEGATIVE (NEGATIVE); NITRITE, URINE NEGATIVE (NEGATIVE); PH,URINE 5.5 (5.0-8.0); UGLUCOSE TRACE (NEGATIVE)
[2019-06-02 19:45] LABS: *CREATININE,URINE 39.5 mg/dL (30-125); *URINE TOTAL PROTEIN RANDOM 20.1 mg/dL (<150/24HR)
[2019-06-02 19:56] VITALS: BP 131/70
--- NOTE | 2019-06-02 20:00 | NUR ---
Received patient in bed asleep, aroused easily. No SOB noted, not in distress. No complaints of pain at this time. IV on R hand intact and patent. SR on Tele monitor. Safety measures observed. Call light in reach
[2019-06-02 20:38] LABS: *CLARITY,URINE HAZY (CLEAR)
[2019-06-02 20:39] LABS: BACTERIA,URINE FEW /HPF (NONE SEEN); SQUAMOUS EPITHELIAL CELL,UR MODERATE /HPF (NONE SEEN); WBC,URINE 0-3 /HPF (0-3)
[2019-06-02] MEDS ORDERED: INSULIN GLARGINE,HUM 300 UNITS/3 ML CARTRIDGE SQ SCH (21:00)
[2019-06-02] MEDS: diphenhydrAMINE 50 MG CAPSULE PO PRN (22:50)
[2019-06-03 00:53] VITALS: BP 135/82
[2019-06-03 05:20] VITALS: BP 143/76
[2019-06-03] MEDS: GUAIFENESIN/CODEINE 5 ML LIQUID UDC PO PRN (05:33)
--- NOTE | 2019-06-03 06:25 | NUR ---
Patient slept well. PRN cough syrup given as ordered. No complaints of pain at this time. SR on Tele monitor. All needs attended. Will endorse accordingly
[2019-06-03] MEDS: BLOOD SUGAR DIAGNOSTIC 1 EACH STRIP VI SCH ×4 (06:30→20:40)
[2019-06-03 06:50] LABS: BASOPHILS % (AUTO) 0.2 % (0.0-2.0); HEMOGLOBIN 9.6 g/dL (10.9-14.3); LYMPHOCYTES # (AUTO) 0.6 K/uL (20.0-40.0); LYMPHOCYTES % (AUTO) 10.9 % (20.5-51.5); MEAN CORPUSCULAR HEMOGLOBIN 27.3 uug (24.7-32.8); MEAN CORPUSCULAR HGB CONC 32 g/dL (32.3-35.6); MEAN CORPUSCULAR VOLUME 85.4 fL (75.5-95.3); MONOCYTES # (AUTO) 0.1 K/uL (2.0-10.0); MONOCYTES % (AUTO) 1.5 % (0.0-11.0); NEUTROPHILS # (AUTO) 5.1 K/uL (1.8-8.9); NEUTROPHILS % (AUTO) 87.4 % (38.5-71.5); PLATELET COUNT (AUTO) 265 K/uL (179-408); RED BLOOD CELL COUNT(AUTO) 3.51 MIL/uL (3.63-4.92); WHITE BLOOD COUNT (AUTO) 5.8 K/uL (3.8-11.8)
[2019-06-03 07:17] LABS: BILIRUBIN,TOTAL 0.3 mg/dL (0.2-1.0); CREATININE 2.4 mg/dL (0.6-1.3); POTASSIUM 4.7 mmol/L (3.5-5.1); TOTAL PROTEIN, SERUM 7.5 g/dL (6.4-8.2)
--- NOTE | 2019-06-03 08:00 | NUR ---
awake alert and verbally responsive, coughing productively medicated with prn meds with relief. afebrile. sr on monitor
[2019-06-03] MEDS: methylPREDNISolone SOD SUCC 40 MG/ML VIAL IV SCH ×2 (08:43→20:39)
[2019-06-03] MEDS: NICOTINE 21 MG/24HR PATCH TD SCH (08:43)
[2019-06-03] MEDS: FLUTICASONE/VILANTEROL 1 EACH BLST.W.DEV INH SCH (08:43)
[2019-06-03] MEDS: LEVETIRACETAM 500 MG TABLET PO SCH ×2 (08:44→20:39)
[2019-06-03] MEDS: GABAPENTIN 100 MG CAPSULE PO SCH (08:44)
[2019-06-03] MEDS: AMLODIPINE 10 MG TABLET PO SCH (08:44)
[2019-06-03] MEDS: ASPIRIN 81 MG TAB.CHEW PO SCH (08:44)
--- NOTE | 2019-06-03 10:12 | NUR ---
up with physical therapist see notes. plan dc home with family/caregiver. see nurse case management bettina
[2019-06-03] MEDS: INSULIN REGULAR, HUMAN 300 UNIT/3 ML VIAL SQ PRN ×3 (11:19→20:40)
[2019-06-03 11:40] VITALS: BP 127/86
[2019-06-03] MEDS: AZITHROMYCIN IV 250 MG in IV DEXTROSE 5% 250 ML IV SCH (13:45)
[2019-06-03 15:24] VITALS: BP 128/73
--- NOTE | 2019-06-03 18:01 | NUR ---
CONTINUE PLAN OF CARE, IV ANTIBIOTIC AND BLOOD SUGAR MONITORING.
--- NOTE | 2019-06-03 19:30 | NUR ---
Received patient awake and alert A/Ox3. no acute distress noted. No complaints of pain or SOB. Patient noted with productive coughing. DVT pump intact. Heplock on the right hand is intact and patent. Safety measures initiated. Bed is low and locked, call light within reach. Will continue to monitor.
[2019-06-03 20:04] VITALS: BP 118/71
[2019-06-03] MEDS ORDERED: INSULIN GLARGINE,HUM 300 UNITS/3 ML CARTRIDGE SQ SCH (21:00)
[2019-06-04 00:47] VITALS: BP 122/64
[2019-06-04] MEDS: diphenhydrAMINE 50 MG CAPSULE PO PRN (01:29)
[2019-06-04 04:00] VITALS: BP 128/70
[2019-06-04] MEDS: BLOOD SUGAR DIAGNOSTIC 1 EACH STRIP VI SCH ×2 (06:31→12:12)
--- NOTE | 2019-06-04 08:00 | NUR ---
Received patient awake in bed. AAOx3. IV on R wrist intact and patent. Denies pain or discomfort. In no acute distress. Will continue to monitor.
[2019-06-04 08:08] LABS: CREATININE 2.1 mg/dL (0.6-1.3); MAGNESIUM 1.9 mg/dL (1.8-2.4); PHOSPHOROUS 2.6 mg/dL (2.5-4.9); POTASSIUM 4.9 mmol/L (3.5-5.1)
[2019-06-04] MEDS: ASPIRIN 81 MG TAB.CHEW PO SCH (08:10)
[2019-06-04] MEDS: LEVETIRACETAM 500 MG TABLET PO SCH (08:10)
[2019-06-04] MEDS: NICOTINE 21 MG/24HR PATCH TD SCH (08:10)
[2019-06-04] MEDS: GABAPENTIN 100 MG CAPSULE PO SCH (08:10)
[2019-06-04] MEDS: FLUTICASONE/VILANTEROL 1 EACH BLST.W.DEV INH SCH (08:10)
[2019-06-04] MEDS: methylPREDNISolone SOD SUCC 40 MG/ML VIAL IV SCH (08:11)
[2019-06-04] MEDS: INSULIN REGULAR, HUMAN 300 UNIT/3 ML VIAL SQ PRN ×2 (08:16→12:28)
[2019-06-04] MEDS: AMLODIPINE 10 MG TABLET PO SCH (08:27)
[2019-06-04 08:30] LABS: HEMOGLOBIN 10.2 g/dL (10.9-14.3); LYMPHOCYTES % (AUTO) 11.9 % (20.5-51.5); MONOCYTES # (AUTO) 0.3 K/uL (2.0-10.0)
[2019-06-04 08:46] LABS: BASOPHILS % (AUTO) 0.2 % (0.0-2.0); HEMATOCRIT 32.1 % (31.2-41.9); LYMPHOCYTES # (AUTO) 0.9 K/uL (20.0-40.0); MEAN CORPUSCULAR HEMOGLOBIN 27.5 uug (24.7-32.8); MEAN CORPUSCULAR HGB CONC 32 g/dL (32.3-35.6); MEAN CORPUSCULAR VOLUME 86.7 fL (75.5-95.3); MONOCYTES % (AUTO) 3.4 % (0.0-11.0); NEUTROPHILS # (AUTO) 6.7 K/uL (1.8-8.9); NEUTROPHILS % (AUTO) 84.5 % (38.5-71.5); PLATELET COUNT (AUTO) 280 K/uL (179-408); RED BLOOD CELL COUNT(AUTO) 3.71 MIL/uL (3.63-4.92)
[2019-06-04 10:07] LABS: A/G RATIO 0.8 (0.7-1.7); ALBUMIN 2.9 g/dL (2.9-4.4); ALPHA-1-GLOBULIN 0.2 g/dL (0.0-0.4); BETA GLOBULIN 0.9 g/dL (0.7-1.3); GAMMA GLOBULIN 1.4 g/dL (0.4-1.8); GLOBULIN, TOTAL 3.5 g/dL (2.2-3.9); M-SPIKE Not Observed g/dL (Not Observed)
[2019-06-04 12:20] VITALS: BP 125/73
[2019-06-04] MEDS ORDERED: GUAI5SYR4 PO (14:51)
[2019-06-04] MEDS ORDERED: METH4TAB3 PO (14:51)
--- NOTE | 2019-06-04 15:10 | NUR ---
Discharge orders in place. Vital signs stable. No cough noted at this time. Denies pain. In no acute distress. Exit care and education provided. IV and ID band removed.
== END 2019-06-04 15:10 | disposition home health service (06) | DRG 637 ==
LOC: ER 12:39 → MEDSURG3 15:05 → TELE3 17:30 → MEDSURG3 06-04 12:31
PROVIDERS: ADMIT Internal Medicine; ATTEND Internal Medicine
DX: E11.65 Type 2 diabetes mellitus with hyperglycemia (principal); N17.0 Acute kidney failure with tubular necrosis; E43 Unspecified severe protein-calorie malnutrition; D68.59 Other primary thrombophilia; Z79.4 Long term (current) use of insulin; E11.42 Type 2 diabetes mellitus with diabetic polyneuropathy; J43.9 Emphysema, unspecified; E11.22 Type 2 diabetes mellitus with diabetic chronic kidney disease; N18.9 Chronic kidney disease, unspecified; E11.319 Type 2 diabetes mellitus with unspecified diabetic retinopathy without macular edema; F20.9 Schizophrenia, unspecified; G24.01 Drug induced subacute dyskinesia; K59.00 Constipation, unspecified; G89.29 Other chronic pain; Z90.49 Acquired absence of other specified parts of digestive tract; G40.909 Epilepsy, unspecified, not intractable, without status epilepticus; E66.01 Morbid (severe) obesity due to excess calories; E78.5 Hyperlipidemia, unspecified; Z86.73 Personal history of transient ischemic attack (TIA), and cerebral infarction without residual deficits; Z68.34 Body mass index [BMI] 34.0-34.9, adult; R26.81 Unsteadiness on feet; Z74.09 Other reduced mobility; M54.9 Dorsalgia, unspecified; D63.8 Anemia in other chronic diseases classified elsewhere; E87.6 Hypokalemia; F17.210 Nicotine dependence, cigarettes, uncomplicated; I13.10 Hypertensive heart and chronic kidney disease without heart failure, with stage 1 through stage 4 chronic kidney disease, or unspecified chronic kidney disease
CPT/HCPCS: 36415; 70030-TC; 71045; 83550; 83605; 83735; 83970; 84100; 84155; 84156; 84165; 84300; 84443; 85025; 85730; 87040; 93005; A4663; G0378; J0456; J1815; J2920; J3475; J3480; J3490; J7030; J7050; J7060; Q0163

== ENCOUNTER 2020-06-18 11:04 | Inpatient (IN) | payer MEDICARE, OTHER ==
[~2020-06-18] VITALS: Ht 165.1 cm; Wt 91.6 kg
[~2020-06-18 11:04] MED LIST changes: +AMLO10TA59 PO; -AMLO10TA7 PO; -ATOR40TA PO; -EPOE1VIA6 IJ; -FERR325T30 PO; +FLUT1BLS6 IH; -FURO-151 PO; -GABA-534 PO; +INSU100C SQ; +INSU3INS6 SQ; -LISI-603 PO; +METO-357 PO; -TUJEO SQ
--- NOTE | 2020-06-18 11:04 | NUR ---
PT BIB [facility] 81 FROM HOME, INTERMITTENT WEAKNESS LATELY, LAST EPISODE TODAY, UNABLE TO SIT PER FAMILY. PT WITH HX OF PANCREATIC CANCER 6 MONTHS AGO. PT HAS A FITULA ON THE LUE, BUT PT HAS NEVER BEEN DIALISED. ON ARRIVAL, PT CO GENERAL WEAKNESS, ALSO CO OF UPPER ABDOMINAL PAIN. ER MD AT BEDSIDE ON ARRIVAL. Addendum: 06/18/20 at 1253 by AJ PER PARAMEDICS PT BP WAS 80/60.
[2020-06-18] MEDS ORDERED: IV NORMAL SALINE 1000 ML BAG IV ONE ×2 (11:15→14:00)
--- NOTE | 2020-06-18 11:22 | NUR ---
shabnam shell called for midline, eta 1700. notified
[2020-06-18 11:32] LABS: BASOPHILS # (AUTO) 0.1 K/uL (0.0-8.0); EOSINOPHILS % (AUTO) 0.4 % (0.0-7.0); HEMOGLOBIN 8.8 g/dL (10.9-14.3); LYMPHOCYTES # (AUTO) 0.6 K/uL (20.0-40.0); MEAN CORPUSCULAR HEMOGLOBIN 27.9 uug (24.7-32.8); MEAN CORPUSCULAR HGB CONC 32 g/dL (32.3-35.6); MEAN CORPUSCULAR VOLUME 88.3 fL (75.5-95.3); MONOCYTES # (AUTO) 0.3 K/uL (2.0-10.0); MONOCYTES % (AUTO) 2.3 % (0.0-11.0); NEUTROPHILS # (AUTO) 10.9 K/uL (1.8-8.9); NEUTROPHILS % (AUTO) 91.3 % (38.5-71.5); PLATELET COUNT (AUTO) 539 K/uL (179-408); RED BLOOD CELL COUNT(AUTO) 3.17 MIL/uL (3.63-4.92)
--- NOTE | 2020-06-18 11:42 | NUR ---
PT IS CURRENTLY A POOR HISTORIA REGARDING CURRENT MEDS AND DOSAGES. DAUGHTER WILL TRY TO OBTAIN MED LIST.
[2020-06-18 11:50] LABS: BILIRUBIN,DIRECT 0.3 mg/dL (0.0-0.2); BILIRUBIN,TOTAL 0.5 mg/dL (0.2-1.0); CREATININE 3.1 mg/dL (0.6-1.3); POTASSIUM 4.7 mmol/L (3.5-5.1); TOTAL PROTEIN, SERUM 6.3 g/dL (6.4-8.2)
[2020-06-18 11:59] LABS: *BILIRUBIN,URIN NEGATIVE (NEGATIVE); *BLOOD, URINE NEGATIVE (NEGATIVE); *CLARITY,URINE CLOUDY (CLEAR); *COLOR,URINE YELLOW (YELLOW); *KETONES,URINE NEGATIVE (NEGATIVE); *UROBILINOGEN,URINE 0.2 E.U./dl (NORMAL); LEUKOCYTE ESTERASE ,URINE NEGATIVE (NEGATIVE); NITRITE, URINE NEGATIVE (NEGATIVE); UGLUCOSE NEGATIVE (NEGATIVE)
[2020-06-18] MEDS ORDERED: POLY119P2 PO (12:14)
[2020-06-18] MEDS ORDERED: FURO-151 PO (12:14)
[2020-06-18] MEDS ORDERED: ONDA4TAB11 PO (12:14)
[2020-06-18] MEDS ORDERED: OMEP20CA15 PO (12:14)
[2020-06-18] MEDS ORDERED: HYDR-894 PO (12:14)
[2020-06-18] MEDS ORDERED: LISI-782 PO (12:14)
[2020-06-18] MEDS ORDERED: EPOE1VIA12 IJ (12:14)
[2020-06-18] MEDS ORDERED: LUBI24CA5 PO (12:14)
[2020-06-18] MEDS ORDERED: INSU100V7 SQ (12:14)
[2020-06-18] MEDS ORDERED: PRUC2TAB PO (12:14)
[2020-06-18] MEDS ORDERED: HYDR-3980 PO (12:14)
[2020-06-18] MEDS ORDERED: INSU100C SQ (12:14)
[2020-06-18] MEDS ORDERED: LINA290C PO (12:14)
[2020-06-18] MEDS ORDERED: SODI650T PO (12:14)
[2020-06-18] MEDS ORDERED: PIPERACILLIN/TAZOBACTAM/D5W 50 ML IV ONE (12:15)
[2020-06-18] MEDS ORDERED: PIPERACILLIN SODIUM/TAZOBACTAM 3.375 G in IV DEXTROSE 5% 50 ML IV ONE (12:15)
--- NOTE | 2020-06-18 12:44 | NUR ---
JAYLIN MCCORD NP, ADMITTED THE PT.
[2020-06-18] MEDS ORDERED: ONDANSETRON 4 MG/2 ML VIAL IV PRN (13:00)
[2020-06-18] MEDS ORDERED: ACETAMINOPHEN 325 MG TABLET PO PRN (13:00)
[2020-06-18] MEDS ORDERED: MAGNESIUM HYDROXIDE 30 ML LIQUID UDC PO PRN (13:00)
[2020-06-18] MEDS ORDERED: Z GUARD REMEDY PASTE 57 GM TUBE TOP PRN (13:00)
[2020-06-18] MEDS ORDERED: IV NORMAL SALINE 500 ML BAG IV ONE (14:00)
--- NOTE | 2020-06-18 14:05 | NUR ---
TRANSFERED PT TO FLOOR IN STABLE CONDITION. ER MD TALKED TO PT DAUGHTER IN WAITING ROOM.
[2020-06-18 14:30] VITALS: BP 106/55
[2020-06-18 15:25] VITALS: BP 130/64
--- NOTE | 2020-06-18 15:25 | NUR ---
Received patient with a liter of NS Bolus running for elevated lactic acid and Low BP. NS bolus done , Vitals BP 130/64 pulse 77, Resp. 18 pain 0/10 and O2 saturation of 100% on room air. Will continue to monitor.
[2020-06-18 16:52] LABS: BACTERIA,URINE NONE SEEN /HPF (NONE SEEN); RBC,URINE 0-3 /HPF (0-3); SQUAMOUS EPITHELIAL CELL,UR FEW /HPF (NONE SEEN); URINE AMORPHOUS URATE MODERATE /HPF; WBC,URINE 0-3 /HPF (0-3)
[2020-06-18] MEDS ORDERED: PIPERACILLIN SODIUM/TAZOBACTAM 3.375 G in IV DEXTROSE 5% 50 ML IV SCH (18:00)
[2020-06-18 20:00] VITALS: BP 139/70
--- NOTE | 2020-06-18 20:00 | NUR ---
AWAKE ,EYES CLOSED, COMPLAIN OF ABDOMINAL PAIN , NORCO 1 TAB GIVEN, RECTAL TEMP 96.8. DOESNT WANT TO BE BOTHERED
[2020-06-18] MEDS: PIPERACILLIN/TAZO 2.25 G in IV DEXTROSE 5% 50 ML IV SCH (20:53)
[2020-06-18] MEDS: HYDROCODONE/APAP 5-325MG TABLET PO PRN (20:53)
[2020-06-18 23:46] VITALS: BP 139/70
[2020-06-19 01:20] VITALS: BP 135/67
[2020-06-19 05:00] VITALS: BP 149/69
[2020-06-19] MEDS: IV NS 1000 ML 1,000 ML IV PRN ×2 (05:40→20:11)
[2020-06-19] MEDS: PIPERACILLIN/TAZO 2.25 G in IV DEXTROSE 5% 50 ML IV SCH ×3 (06:32→20:11)
[2020-06-19] MEDS: PANTOPRAZOLE SODIUM 40 MG TABLET.DR PO SCH (06:44)
[2020-06-19 07:03] LABS: BASOPHILS % (AUTO) 0.5 % (0.0-2.0); EOSINOPHILS # (AUTO) 0.2 K/uL (0.0-0.7); EOSINOPHILS % (AUTO) 2.3 % (0.0-7.0); HEMATOCRIT 24.6 % (31.2-41.9); LYMPHOCYTES # (AUTO) 0.5 K/uL (20.0-40.0); LYMPHOCYTES % (AUTO) 4.7 % (20.5-51.5); MEAN CORPUSCULAR HEMOGLOBIN 28.3 uug (24.7-32.8); MEAN CORPUSCULAR HGB CONC 33 g/dL (32.3-35.6); MEAN CORPUSCULAR VOLUME 87.2 fL (75.5-95.3); MONOCYTES # (AUTO) 0.2 K/uL (2.0-10.0); MONOCYTES % (AUTO) 2.5 % (0.0-11.0); NEUTROPHILS # (AUTO) 8.7 K/uL (1.8-8.9); PLATELET COUNT (AUTO) 442 K/uL (179-408); RED BLOOD CELL COUNT(AUTO) 2.83 MIL/uL (3.63-4.92); WHITE BLOOD COUNT (AUTO) 9.7 K/uL (3.8-11.8)
--- NOTE | 2020-06-19 07:30 | NUR ---
Received patient awake, eyes closed. On room air. No signs and symptoms of respiratory distress. Right UA Midline with 1L NS at 75cc/ hr. Will continue to monitor.
[2020-06-19 07:35] LABS: BILIRUBIN,TOTAL 0.3 mg/dL (0.2-1.0); CREATININE 2.8 mg/dL (0.6-1.3); MAGNESIUM 1.9 mg/dL (1.8-2.4); PHOSPHOROUS 4.2 mg/dL (2.5-4.9); POTASSIUM 4.7 mmol/L (3.5-5.1); TOTAL PROTEIN, SERUM 5.6 g/dL (6.4-8.2)
[2020-06-19] MEDS: HYDROCODONE/APAP 5-325MG TABLET PO PRN ×2 (09:26→20:11)
[2020-06-19 11:39] VITALS: BP 124/64
[2020-06-19 11:57] VITALS: BP 124/64
[2020-06-19] MEDS ORDERED: ENSURE WITH FIBER 237 ML LIQUID (CHOCOLATE) PO SCH (12:00)
[2020-06-19 16:32] VITALS: BP_SYST 108; BP_SYST 138; BP_DIAS 65; BP_DIAS 71
[2020-06-19] MEDS: GLUCERNA SHAKE VANILLA 237 ML CAN PO SCH (17:42)
[2020-06-19 20:03] VITALS: BP 143/66
--- NOTE | 2020-06-19 21:00 | NUR ---
Received patient resting in bed. No s/s of acute distress noted at this time. Pt on RA denies SOB. C/o abdominal pain, will administer pain medication per orders. Pt has poor appetite, encouraged patient to drink shakes. Pt stated "I cant drink the shake without taking lactaid, ill get diarrhea" notified TROY Alonso, new order given for Lactinex to take prior to consuming the glucerna shake. LARISSA midline patent and intact. SCDs in place. color depositing machine tender in place NSR. Safety measures in place and will continue to monitor. Addendum: 06/19/20 at 2222 by VASU NEIL RN Correction: D/c lactinex per Maribel Alonso and add lactose intolerant milk/shake
[2020-06-19] MEDS ORDERED: ACIDOPHILUS/BULGARICUS CHEW TAB PO PRN (21:15)
[2020-06-19] MEDS ORDERED: DEXTROSE 50% 50 ML DISP.SYRIN IV PRN (21:15)
[2020-06-19] MEDS: BLOOD SUGAR DIAGNOSTIC 1 EACH STRIP VI SCH (21:37)
[2020-06-19] MEDS: INSULIN REGULAR, HUMAN 300 UNIT/3 ML VIAL SQ PRN (21:40)
[2020-06-20] MEDS: HYDROCODONE/APAP 5-325MG TABLET PO PRN ×5 (00:19→22:57)
[2020-06-20 00:20] VITALS: BP 143/72
[2020-06-20 04:09] VITALS: BP 111/55
[2020-06-20] MEDS: PIPERACILLIN/TAZO 2.25 G in IV DEXTROSE 5% 50 ML IV SCH (05:00)
[2020-06-20] MEDS: PANTOPRAZOLE SODIUM 40 MG TABLET.DR PO SCH (06:08)
[2020-06-20 06:43] LABS: EOSINOPHILS # (AUTO) 0.2 K/uL (0.0-0.7); MONOCYTES # (AUTO) 0.5 K/uL (2.0-10.0); NEUTROPHILS # (AUTO) 4.8 K/uL (1.8-8.9); WHITE BLOOD COUNT (AUTO) 6.5 K/uL (3.8-11.8)
[2020-06-20 06:45] LABS: BASOPHILS % (AUTO) 0.5 % (0.0-2.0); EOSINOPHILS % (AUTO) 2.6 % (0.0-7.0); HEMATOCRIT 22.7 % (31.2-41.9); LYMPHOCYTES % (AUTO) 14.9 % (20.5-51.5); MEAN CORPUSCULAR HEMOGLOBIN 28.4 uug (24.7-32.8); MEAN CORPUSCULAR HGB CONC 32 g/dL (32.3-35.6); MEAN CORPUSCULAR VOLUME 87.8 fL (75.5-95.3); MONOCYTES % (AUTO) 7.3 % (0.0-11.0); NEUTROPHILS % (AUTO) 74.7 % (38.5-71.5); PLATELET COUNT (AUTO) 375 K/uL (179-408); RED BLOOD CELL COUNT(AUTO) 2.58 MIL/uL (3.63-4.92)
[2020-06-20] MEDS: BLOOD SUGAR DIAGNOSTIC 1 EACH STRIP VI SCH ×4 (06:54→20:44)
[2020-06-20 07:53] LABS: BILIRUBIN,TOTAL 0.5 mg/dL (0.2-1.0); CREATININE 2.5 mg/dL (0.6-1.3); MAGNESIUM 1.7 mg/dL (1.8-2.4); PHOSPHOROUS 3.8 mg/dL (2.5-4.9); POTASSIUM 4.1 mmol/L (3.5-5.1); TOTAL PROTEIN, SERUM 4.9 g/dL (6.4-8.2)
--- NOTE | 2020-06-20 08:00 | NUR ---
Received p.t in bed sound asleep. Breathing is even and unlabored on R.A. Denies any pain and discomfort at this time. P.t was given pain medication a night. Right upper arm I.V line is intact and patent. Call light within reach.
[2020-06-20 08:14] LABS: HEMOGLOBIN 7.3 g/dL (10.9-14.3)
[2020-06-20] MEDS ORDERED: MAGNESIUM SULFATE/D5W 100 ML IV SCH (11:15)
[2020-06-20] MEDS: GLUCERNA SHAKE VANILLA 237 ML CAN PO SCH ×3 (11:31→16:55)
[2020-06-20] MEDS: IV NS 1000 ML 1,000 ML IV PRN (12:09)
[2020-06-20 12:39] VITALS: BP 139/67
[2020-06-20 13:06] LABS: A/G RATIO 0.5 (0.7-1.7); ALBUMIN 1.5 g/dL (2.9-4.4); ALPHA-1-GLOBULIN 0.4 g/dL (0.0-0.4); ALPHA-2-GLOBULIN 0.9 g/dL (0.4-1.0); BETA GLOBULIN 0.7 g/dL (0.7-1.3); GAMMA GLOBULIN 1.3 g/dL (0.4-1.8); GLOBULIN, TOTAL 3.2 g/dL (2.2-3.9); M-SPIKE Not Observed g/dL (Not Observed)
[2020-06-20] MEDS: PIPERACILLIN SODIUM/TAZOBACTAM 3.37 G in IV DEXTROSE 5% 100 ML IV SCH ×2 (13:30→20:38)
[2020-06-20 15:53] VITALS: BP 130/69
[2020-06-20] MEDS: INSULIN REGULAR, HUMAN 300 UNIT/3 ML VIAL SQ PRN ×2 (16:54→20:42)
--- NOTE | 2020-06-20 19:00 | NUR ---
Tal in bed awake and alert, breath sounds are even and unlabored. Vitals signs are within normal limits. All due meds were take as ordered. Tal was seen by ECCLESIASTICAL WORKER Elfego, aware of low hemoglobin of 7.3, with order for occult blood stool, will relay to night nurse noted. Tal also has order for CT scan of head, taken down by radiology downstairs. I.V line remains intact and patent. Tal complained of medial abdominal pain and given Salters for pain as needed. Consumed good amount of her meal noted. BM x 1. All needs are attended. Endorsed to warehouse supervisor 3rd shift nurse. Call light within reach.
[2020-06-20 20:00] VITALS: BP 170/70
[2020-06-20] MEDS: HYDROMORPHONE 1 MG/1 ML DISP.SYRIN IV PRN (20:38)
[2020-06-21] VITALS: BP 164/91
[2020-06-21 04:00] VITALS: BP 138/68
[2020-06-21] MEDS: HYDROMORPHONE 1 MG/1 ML DISP.SYRIN IV PRN (05:32)
[2020-06-21 05:59] LABS: BASOPHILS % (AUTO) 0.6 % (0.0-2.0); EOSINOPHILS # (AUTO) 0.1 K/uL (0.0-0.7); EOSINOPHILS % (AUTO) 1.4 % (0.0-7.0); HEMATOCRIT 21.3 % (31.2-41.9); LYMPHOCYTES # (AUTO) 1.3 K/uL (20.0-40.0); LYMPHOCYTES % (AUTO) 15.8 % (20.5-51.5); MEAN CORPUSCULAR HEMOGLOBIN 29.2 uug (24.7-32.8); MEAN CORPUSCULAR HGB CONC 34 g/dL (32.3-35.6); MEAN CORPUSCULAR VOLUME 86.7 fL (75.5-95.3); MONOCYTES # (AUTO) 0.5 K/uL (2.0-10.0); NEUTROPHILS # (AUTO) 6.1 K/uL (1.8-8.9); NEUTROPHILS % (AUTO) 76.2 % (38.5-71.5); PLATELET COUNT (AUTO) 406 K/uL (179-408)
[2020-06-21 06:10] LABS: HEMOGLOBIN 7.2 g/dL (10.9-14.3); RED BLOOD CELL COUNT(AUTO) 2.46 MIL/uL (3.63-4.92)
[2020-06-21] MEDS: PANTOPRAZOLE SODIUM 40 MG TABLET.DR PO SCH (06:32)
[2020-06-21] MEDS: HYDROCODONE/APAP 5-325MG TABLET PO PRN ×3 (06:33→18:25)
[2020-06-21] MEDS: BLOOD SUGAR DIAGNOSTIC 1 EACH STRIP VI SCH ×3 (06:51→17:29)
--- NOTE | 2020-06-21 07:00 | NUR ---
Mrs Orozco rested well in between care; had CT scan done yesterday; c/o pain and addressed accordingly; incontinence care done; needs attended; safety maintained.
[2020-06-21 07:31] LABS: CREATININE 2.5 mg/dL (0.6-1.3); PHOSPHOROUS 3.9 mg/dL (2.5-4.9); POTASSIUM 4.1 mmol/L (3.5-5.1)
[2020-06-21 08:06] LABS: HEPATITIS B SURFACE AB Non Reactive (.); HEPATITIS B SURFACE AG Negative (Negative)
[2020-06-21] MEDS: GLUCERNA SHAKE VANILLA 237 ML CAN PO SCH ×3 (08:52→17:32)
[2020-06-21] MEDS: IV NS 1000 ML 1,000 ML IV PRN (09:53)
[2020-06-21 11:57] VITALS: BP 144/71
[2020-06-21] MEDS: INSULIN REGULAR, HUMAN 300 UNIT/3 ML VIAL SQ PRN (12:59)
[2020-06-21 16:00] VITALS: BP 146/72
--- NOTE | 2020-06-21 19:04 | NUR ---
pt is discharged home with belongings in stable condition. all paperwork signed and in chart with copy given to patient. all medication given as ordered. patient left on wheelchair pickup by son David. IV and ID band removed. discharge and teaching completed.
== END 2020-06-21 19:09 | disposition home health service (06) | DRG 871 ==
LOC: ER 11:04 → TELE3 13:34
PROVIDERS: ADMIT Nurse Practitioner Acute Care; ATTEND Nurse Practitioner Family
DX: A41.9 Sepsis, unspecified organism (principal); N17.0 Acute kidney failure with tubular necrosis; E43 Unspecified severe protein-calorie malnutrition; C25.9 Malignant neoplasm of pancreas, unspecified; I13.0 Hypertensive heart and chronic kidney disease with heart failure and stage 1 through stage 4 chronic kidney disease, or unspecified chronic kidney disease; I50.32 Chronic diastolic (congestive) heart failure; E87.2 Acidosis; N18.9 Chronic kidney disease, unspecified; E10.22 Type 1 diabetes mellitus with diabetic chronic kidney disease; E78.5 Hyperlipidemia, unspecified; Z20.822 Contact with and (suspected) exposure to COVID-19; Z92.21 Personal history of antineoplastic chemotherapy; F20.9 Schizophrenia, unspecified; Z87.891 Personal history of nicotine dependence; J44.9 Chronic obstructive pulmonary disease, unspecified; D63.1 Anemia in chronic kidney disease; R74.01 Elevation of levels of liver transaminase levels; R53.1 Weakness; M19.90 Unspecified osteoarthritis, unspecified site; N20.0 Calculus of kidney; E88.09 Other disorders of plasma-protein metabolism, not elsewhere classified; Z68.33 Body mass index [BMI] 33.0-33.9, adult; R55 Syncope and collapse; Z71.3 Dietary counseling and surveillance; Z71.6 Tobacco abuse counseling; A08.4 Viral intestinal infection, unspecified; Z79.4 Long term (current) use of insulin; E10.42 Type 1 diabetes mellitus with diabetic polyneuropathy
CPT/HCPCS: 36415; 70030-TC; 70450; 71045; 83550; 83605; 83690; 83735; 83970; 84100; 84155; 84165; 85025; 85730; 86301; 86706; 86803; 87040; 87086; 87340; 93005; A4663; C1758; G0378; J1170; J1815; J2543; J3475; J7030; J7050; J7060